=== PATIENT | female | born 1985 | race Caucasian/White ===

== ENCOUNTER 2019-11-20 18:27 | Emergency (ER) | payer OTHER, SELFPAY ==
--- NOTE | ~2019-11-20 | XR_ITS ---
XR knee LT min 4V 11/20/2019 19:51 Indication: Left knee pain after fall. Swelling. Procedure: 5 views left knee Comparison: No prior studies for comparison. Findings: There is a distracted transverse patellar fracture. Large joint effusion. There is prepatel lar and infrapatellar soft tissue swelling. No other fractures. No foreign bodies. Impression: 1: Distracted transverse patellar fracture with large joint effusion. Reviewed, dictated and finalized at location A. Impression: 1: Distracted transverse patellar fracture with large joint effusion.
[2019-11-20 18:35] VITALS: BP 123/60; PULSE 88; RESP 16; TEMP 36.5; O2SAT 100
--- NOTE | 2019-11-20 19:34 | ED.GENADULT ---
HPI - General Adult General Chief complaint: Extremity Injury, Lower Stated complaint: left thigh and knee bruising Time Seen by Provider: 11/20/19 19:34 Source: patient and RN notes reviewed Mode of arrival: ambulatory Limitations: no limitations History of Present Illness HPI narrative: 27-year-old female presents with complains of left proximal-medial thigh bruising and anterior diffused knee swelling, pain, and bruising for the past 4 days. No treatment. Alina says she had a plate of food in her had and slide on some water folding her LT leg under her causing injury to LT knee. She continued to ambulate and use leg for the next 3-4 days until pain increased the last 24 hours with bruising. No radiation of pain. No numbness or tingling, or bleeding. No loss of mobility. Exacerbating factor consist of bearing weight and movement of knee. Denies being , Hysterectomy. Remains active. The patient reports she have not been diagnosed with COVID-19. The patient reports she is not waiting for the results of a COVID-19 lab test. The patient reports she do not have fever, chills, weakness, or fatigue. The patient reports she do not have a new or worsening cough or shortness of breath. Denies chest pain. The patient reports she do not have any rhinorrhea, congestion, sore throat, nausea, vomiting, abdominal pain, and diarrhea. Tolerating po intake well. Denies recent traveling. Denies concerns for COVID-19 or exposures been home with limited outdoor exposure except for essential household needs and return home. At this time, patient is not suspected of having COVID-19. Some parts of this dictation were generated by voice recognition software and may contain typographical and/or grammatical inaccuracies. Related Data Home Medications Medication Instructions Recorded Confirmed gabapentin 400 mg PO TID 11/20/19 11/21/19 naltrexone microspheres [Vivitrol] 380 mg IM MONTHLY 11/20/19 11/21/19 acetaminophen [Tylenol Extra 500 mg PO Q6H PRN 11/21/19 11/21/19 Strength] ibuprofen 200 mg PO Q6H PRN 11/21/19 11/21/19 venlafaxine 150 mg PO DAILY 11/21/19 11/21/19 Allergies Allergy/AdvReac Type Severity Reaction Status Date / Time Sulfa (Sulfonamide Allergy Mild hives Verified 11/21/19 15:34 Antibiotics) sulfamethoxazole Allergy Mild hives Verified 11/21/19 15:34 trimethoprim Allergy Mild hives Verified 11/21/19 15:34 Review of Systems Review of Systems: Narrative: CONSTITUTIONAL: Denies fever, chills, sweats. EYES: Denies visual changes, redness, discharge. ENT: Denies rhinorrhea, congestion, sore throat, otalgia. CARDIOVASCULAR: Denies chest pain, palpitations, edema. RESPIRATORY: Denies dyspnea, wheezing, cough. GASTROINTESTINAL: Denies abdominal pain, nausea, vomiting, diarrhea. GENITOURINARY: Denies dysuria, hematuria, abnormal discharge. SKIN: Denies rash or itching. MUSCULOSKELETAL: Denies acute back pain or myalgia. Complains of Left proximal-medial thigh bruising and anterior diffused knee swelling, pain, and bruising. NEUROLOGIC: Denies numbness, or focal weakness. PSYCHIATRIC: Denies anxiety or depression. All other systems reviewed & are unremarkable except as noted in HPI and below. [facility], [facility] Social History Social History Smoking packs per day: 0.5 Smoking cigarettes per day: 10.0 Years smoked: 15 Smoking pack-years: 7.50 Smoking status: Current every day smoker Tobacco type: cigarettes Second hand tobacco smoke exposure: No Alcohol intake: current Drinks per week: 2 Substance use: current Substance use type: marijuana Other substance usage details: FORMER OPIATE ABUSE- 2 YEARS AGO Last use: 11/21/2019 Gender identity (if verbalized by the patient): Female Spiritual care concerns: No Comments At time of signature, agree with nurse past medical, surgical, social, and family history. There is no relevant family history p
== END 2019-11-20 20:18 | disposition home or self-care (01) ==
PROVIDERS: Emergency Provider Nurse Practitioner Family
DX: S82.002A Unspecified fracture of left patella, initial encounter for closed fracture (principal); X58.XXXA Exposure to other specified factors, initial encounter; M25.462 Effusion, left knee; F17.210 Nicotine dependence, cigarettes, uncomplicated; F32.9 Major depressive disorder, single episode, unspecified
CPT/HCPCS: 73564; 99204; G0463; L1830

== ENCOUNTER 2019-11-26 01:04 | Outpatient (CLI) | payer OTHER, SELFPAY ==
[2019-11-26 19:35] LABS: SARS-CoV-2 RNA PCR Negative
== END 2019-11-26 01:05 | disposition home or self-care (01) ==
LOC: ANHCOVIDDT 01:04
PROVIDERS: Visit Provider Orthopaedic Surgery
DX: Z01.812 Encounter for preprocedural laboratory examination (principal); Z11.59 Encounter for screening for other viral diseases
CPT/HCPCS: 87635; C9803; U0003

== ENCOUNTER 2019-11-28 02:04 | Day surgery (SDC) | payer OTHER, SELFPAY ==
[2019-11-21 15:33] VITALS: BMI 26.6
--- NOTE | 2019-11-27 09:19 | WPDANESEPPF ---
Anes - Initial Pre Proc Eval Procedure: Operation Date: 11/28/19 11:00 Proposed Procedures p Open Reduction Internal Fixation Left Patella - Yogesh Perez MD Date/Time: 11/27/19 09:19 Surgeon: Yogesh Perez MD Pre Op Diagnosis: Left Patella Fx Patient Data Age: 34 Gender: F Height: 1.65 m Weight: 72.57 kg Allergies Allergy/AdvReac Type Severity Reaction Status Date / Time Sulfa (Sulfonamide Allergy Mild hives Verified 11/28/19 09:34 Antibiotics) sulfamethoxazole Allergy Mild hives Verified 11/28/19 09:34 trimethoprim Allergy Mild hives Verified 11/28/19 09:34 Home Medications Medication Instructions Recorded Confirmed Type gabapentin 400 mg PO TID 11/20/19 11/28/19 History naltrexone microspheres [Vivitrol] 380 mg IM MONTHLY 11/20/19 11/28/19 History acetaminophen [Tylenol Extra 500 mg PO Q6H PRN 11/21/19 11/28/19 History Strength] ibuprofen 200 mg PO Q6H PRN 11/21/19 11/28/19 History venlafaxine 150 mg PO DAILY 11/21/19 11/28/19 History Patient hx anesthesia problems: none Family hx anesthesia problems: none [facility] Past Medical History Medical History Anxiety Depression History of substance abuse now on naltrexone Smoker Surgical History Surgical History (Updated 11/21/19 @ 15:00 by Yogesh Perez MD) History of hysterectomy Social History Social History Smoking packs per day: 0.5 Smoking cigarettes per day: 10.0 Years smoked: 15 Smoking pack-years: 7.50 Smoking status: Current every day smoker Tobacco type: cigarettes Second hand tobacco smoke exposure: No Alcohol intake: current Drinks per week: 2 Substance use: current Substance use type: marijuana Other substance usage details: FORMER OPIATE ABUSE- 2 YEARS AGO Last use: 11/21/2019 Gender identity (if verbalized by the patient): Female Spiritual care concerns: No Anes - Eval Final PreProcedure Day of Procedure 11/27/19 09:19 Patient weight: overweight Heart: regular rate and rhythm Lungs: clear to auscultation and normal air movement Airway: Mallampati scale class II Neurological: alert and oriented Last oral intake: >/= 8 hours ASA classification: III Emergent: no Anesthetic plan: proceed Anesthesia type and monitoring: general LMA and standard monitoring Informed Consent: The patient's anesthetic plan and its attendant risks and benefits were discussed with the patient/family/POA. Questions were solicited and answers provided to the satisfaction of the patient/family/POA.
--- NOTE | 2019-11-27 09:19 | WPDANESPNB ---
Anes - Peripheral Nerve Block Date/Time: 11/27/19 09:19 I have discussed with the patient/family/POA the placement of a peripheral nerve block for post-operative pain management, including associated risks, benefits, complications, and side effects. Alternative methods of post-operative analgesia were detailed. Questions were solicited and answers provided to the satisfaction of the patient/family/POA. Time-Out: A pre-procedural Time-Out was completed immediately before starting the procedure and confirmed: Patient Identification, Site, Procedure, Patient Position and the Availability of Requisite Equipment. Clinical Indications: Acute post-operative pain management requested by the operative surgeon. Nerve Block Insertion Note Anes-nerve block: adductor canal left Patient position: supine Skin prep: chlorhexidine Needle: 22 gauge, stimulating, insulated echogenic needle. Needle length: 80 mm Technique: ultrasound Injectate: bupivacaine 0.5% with epi 5 mcg/ml (30cc) Observations: tolerated well Complications: none Procedure start time:: 1130 Procedure end time:: 1132
[2019-11-28] VITALS (13 sets, daily range): BP systolic 117–141; BP diastolic 62–100; PULSE 60–98; RESP 16–24; TEMP 36.9–37.7; O2SAT 97–100
--- NOTE | ~2019-11-28 | XR_ITS ---
EXAMINATION: XR surgery orthopedic DATE: 11/28/2019 14:11 INDICATION: ORIF left patellar fracture TECHNIQUE: 4 fluoroscopic spot images of the left knee were obtained during procedure performed by Dr Glida Perez. Radiologist was not present for the imaging or procedure. The amount of fluoroscopy judi e used during this procedure was 0.9 minutes. COMPARISON: None. FINDINGS: Images demonstrate a transverse fracture of the patella which is been reduced to essentiall y anatomic alignment and disc fixed with 2 cannulated lag screws which are threaded a duejld-ob-myexr cerclage wire which extends along the anterior margin of the patella. No other fractures identified. Joint spacing the medial and lateral compartments appear unremarkable. IMPRESSION: 1. Fluoroscopy utilized during internal fixation of a transverse patellar fracture which is now near- anatomic alignment. See procedure note for further detail. Reviewed, dictated and finalized at location A. IMPRESSION: 1. Fluoroscopy utilized during internal fixation of a transverse patellar fract ure which is now near-anatomic alignment. See procedure note for further detail .
[2019-11-28] MEDS: ACETAMINOPHEN 500 MG TABLET 1000 MG PO (09:54)
[2019-11-28] MEDS: LACTATED RINGERS 1,000 ML 30 ML IV CONT ×3 (09:54→16:46)
[2019-11-28] MEDS: KETOROLAC 15 MG/ML VIAL (*BKC) IV PUSH ×2 (09:55→15:50)
--- NOTE | 2019-11-28 10:10 | SUR.PREOP ---
PT INFORMED OF SURGICAL TIME DELAY UPON ARRIVAL
--- NOTE | 2019-11-28 10:52 | WPDHPUPDATE1 ---
History and Physical Update Update Date/Time: 11/28/19 10:52 History and Physical has been reviewed, including an updated exam of the patient. There are NO changes in the patient's condition. Risks, benefits, and alternatives have been discussed and questions answered. Patient agrees to proceed with procedure.
[2019-11-28] MEDS: ceFAZolin 2 GM/D5W 50 ML 2 GM/50 ML BAG IVPB (11:56)
[2019-11-28] MEDS: BUPIVACAINE/EPINEPHRINE 0.5% 30 ML VIAL INFILTRATE (14:08)
--- NOTE | 2019-11-28 15:06 | SUR.PHASEI ---
1451; PT INTO PACU PER STRETCHER. PT TRYING TO SIT UP ON STRETCHER. PT DROWSY, DISORIENTED. STAFF KEEPING PT ON STRETCHER. ORIENTING TO PACU. 1458; PT REMAINS DROWSY, TRYING TO SIT UP AND GET OFF STRETCHER. PT COMFORTED. FUR PLUCKER GAVE IV VERSED. 1503; PT RESTING QUIETLY. RESP EVEN UNLABORED. P,W,D. LT LEG DRESSING D/I. BRACE INTACT. ELEVATED AND ICED. LT FOOT PINK AND WARM. 1505; PT SHIVERING. MARIELENA HUGGER APPLIED.
--- NOTE | 2019-11-28 15:31 | SUR.PHASEII ---
PT AWAKE. C/O PAIN 08/31. NO NARCOTICS . LT LEG ELEVATED ON PILLOW, ICE PACK ON. BRACE STRAIGHT AND INTACT.
[2019-11-28] MEDS: ONDANSETRON INJ 4 MG/2 ML VIAL IV PUSH (15:36)
--- NOTE | 2019-11-28 15:37 | SUR.PHASEI ---
0525; PT C/O NAUSEA. TEARFUL NOW. STATES SHE WOULD LIKE SOME IV NARCOTIC FOR PAIN NOW. JUST NONE TO GO HOME WITH . ZOFRAN GIVEN IV. PT COMFORTED.
--- NOTE | 2019-11-28 15:38 | SUR.PHASEI ---
LATE NOTE 1529; MOTHER CALLED FOR UPDATE. SHE STATED DO NOT GIVE HER ANY NARCOTICS . MOTHER WAS VERY ADAMANT ABOUT THIS.
--- NOTE | 2019-11-28 15:44 | SUR.PHASEI ---
154; CALLED DR SALDANA. NOTIFIED OF PT ASKING FOR IV PAIN MEDICINE BUT NO PAIN PILLS. DR SALDANA STATES HE AND PT DID DISCUSS USING IV NARCOTICS AND THAT SHE WAS OK WITH IT PREOP. WILL START WITH ANOTHER IV TORADOL 15MG.
--- NOTE | 2019-11-28 15:54 | SUR.PHASEI ---
9897; CALLED DR PEARSON'S OFFICE. WILL CALL BACK.
--- NOTE | 2019-11-28 16:30 | SUR.PHASEI ---
1604; SPOKE TO DR PEARSON. HE STATES PT WILL BE IN A SIGNIFICANT AMT OF PAIN DUE TO THIS SURGERY. PT WILL NEED IV PAIN MEDICINE. ALSO THAT HE SPOKE TO PT'S MARIVEL QUZEADA, AND SAID HE WAS SENDING A PRESCRIPTION FOR 2-3 DAYS WORTH OF PAIN MEDICATION. 1610; PT UPDATED. PT AWAKE AND ALERT. ASKING FOR PAIN MEDICATION. 1630; PT AWAKE AND ALERT TALKATIVE. STATES PAIN BETTER NOW AT 5-6/10. SHE IS CALM AND NO LONGER TEARFUL.
--- NOTE | 2019-11-28 16:38 | SUR.PHASEI ---
1640; PT RESTING QUIETLY. RESP EVEN UNLABORED.
--- NOTE | 2019-11-28 16:54 | SUR.PHASEI ---
1645; PT AWAKE AND ALERT. STATES PAIN 6/10. WOULD LIKE ONE MORE DOSE OF PAIN MEDICATION. 1654; PT STATES SHE IS READY TO MOVE TO [facility].
--- NOTE | 2019-12-13 09:31 | PM.PROC ---
Procedure Note - Detailed Date of procedure: 11/28/19 Pre-op diagnosis: Left Patella Fx Post-op diagnosis: same Procedure performed: Open reduction and internal fixation left patella fracture. Description of procedure: Comminuted fracture with wide displacement. Fixed with 4-0 cannulated screws and 20 gauge wire. Anesthesia: GLMA Surgeon: Yogesh Perez MD Complications: No immediate complications Condition: stable Disposition: PACU Findings: Preoperative antibiotics were given. A general anesthetic was administered. The leg was prepped and draped in the usual sterile fashion. A longitudinal incision was created over the patella. The fracture was cleaned and exposed. Significant comminution noted laterally. A medial parapatellar arthrotomy was performed to gain access to the articular fragments. Anatomic reduction was obtained. Reduction clamps were used. Partially threaded cannulated screws were placed from distal to proximal. Good compression of the fracture was observed. A 20 gauge wire was woven in a bkrdoj-fh-vqbwx fashion. The wire was twisted and compressed anteriorly. The knee was copiously irrigated. The remaining articular cartilage it initially looked good. The medial and lateral retinacular splits were closed with 1. Vicryl suture. The deep fascia was closed similarly as well with 2. Quill suture. Subcutaneous interrupted sutures were placed followed by running subcuticular Quill suture and Steri-Strips. A sterile dressing was applied. The patient was extubated and brought to recovery room in stable condition. A knee immobilizer was applied.
== END 2019-11-28 17:55 | disposition home or self-care (01) ==
PROVIDERS: Visit Provider Orthopaedic Surgery
PROC: (CPT 27524; principal; 2019-11-28 11:00)
DX: S82.032A Displaced transverse fracture of left patella, initial encounter for closed fracture (principal); W01.0XXA Fall on same level from slipping, tripping and stumbling without subsequent striking against object, initial encounter; G89.18 Other acute postprocedural pain; F41.8 Other specified anxiety disorders; F17.210 Nicotine dependence, cigarettes, uncomplicated; F11.11 Opioid abuse, in remission; F12.90 Cannabis use, unspecified, uncomplicated
CPT/HCPCS: 27524; 64447; A9270; C1713; C1769; J0690; J1100; J1885; J2250; J2370; J2405; J2704; J3010; J7120; L1830

== ENCOUNTER 2021-09-05 15:21 | Emergency (ER) | payer OTHER, SELFPAY ==
[2021-09-05 15:25] VITALS: BP 145/91; PULSE 130; RESP 18; TEMP 37.1; O2SAT 99
--- NOTE | 2021-09-05 15:33 | ED.CHESTPAIN ---
HPI - Chest Pain General Chief Complaint: Chest Pain Stated Complaint: Chest Pain Time Seen by Provider: 09/05/21 15:23 Source: patient and RN notes reviewed History of Present Illness HPI narrative: Patient is a 36-year-old female who presents the urgent care with complaints of left-sided chest pain. Patient states that it started approximately 1 week ago and is now radiating through the back, around the left shoulder and down the left arm. Patient states that she mowed the lawn today assuming that it was muscular pain . Patient states that the pain did exacerbate with mowing as well as with pressure to the chest. Patient states she has a lot of anxiety and depression in her past. States that she is currently nauseated but denies vomiting. Denies of palpitations. Denies of shortness of breath. Patient has not taken anything [id number] for her symptoms. 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 Patient is trending off the medication with her primary care doctor. No other acute complaints. Patient is anxious and tearful. Patient aware of the plan of care. Some parts of this dictation were generated by voice recognition software and may contain typographical and/or grammatical inaccuracies. Related Data Home Medications Medication Instructions Recorded Confirmed venlafaxine 150 mg PO DAILY 11/21/19 09/05/21 buspirone 5 mg PO TID 09/05/21 09/05/21 disulfiram 250 mg PO DAILY 09/05/21 09/05/21 gabapentin 600 mg PO TID 09/05/21 09/05/21 venlafaxine 75 mg PO QPM 09/05/21 09/05/21 Allergies Allergy/AdvReac Type Severity Reaction Status Date / Time Sulfa (Sulfonamide Allergy Mild hives Verified 09/05/21 15:53 Antibiotics) sulfamethoxazole Allergy Mild hives Verified 09/05/21 15:53 trimethoprim Allergy Mild hives Verified 09/05/21 15:53 Review of Systems Review of Systems: CONSTITUTIONAL: Denies fever, chills, or sweats. EYES: Denies visual changes, redness, or discharge. ENT: Denies rhinorrhea, congestion, sore throat, or otalgia. CARDIOVASCULAR: Reports of chest pain to the left chest radiating through to the back and down the left arm RESPIRATORY: Denies cough or dyspnea. GASTROINTESTINAL: Denies abdominal pain, nausea, vomiting, or diarrhea. GENITOURINARY: Denies dysuria or hematuria. SKIN: Denies rash or itching. MUSCULOSKELETAL: Denies back pain, joint pain, or myalgia. NEUROLOGIC: Denies headache, numbness, or weakness. PSYCHIATRIC: Reports of anxiety and panic attacks All other systems reviewed are negative, except as documented in HPI. PMFSH Past Medical History Medical History Anxiety Depression History of substance abuse now on naltrexone Smoker Surgical History Surgical History History of hysterectomy Family History Family History Father Alive and well Mother Alive and well Social History Social History Smoking packs per day: 0.5 Smoking cigarettes per day: 10.0 Years smoked: 15 Smoking pack-years: 7.50 Smoking status: Current every day smoker Tobacco type: cigarettes Second hand tobacco smoke exposure: No Alcohol intake: current Drinks per week: 2 Substance use: current Substance use type: marijuana Other substance usage details: FORMER OPIATE ABUSE- 2 YEARS AGO Last use: 11/21/2019 Gender identity (if verbalized by the patient): Female Sexual Orientation (if Verbalized by the Patient): Straight or Heterosexual Spiritual care concerns: No Comments At the time of my signature, I reviewed and agree with the nursing past medical, surgical, social, and family history. There is no relevant family history pertinent to the patient complaint. Exam Narrative: GENERAL: This is a well-nourished, well-developed patient. Tearful and anxious HEAD: no
[2021-09-05 15:53] VITALS: BP 130/91
== END 2021-09-05 15:53 | disposition short-term general hospital (02) ==
PROVIDERS: Emergency Provider Nurse Practitioner Family
DX: R07.9 Chest pain, unspecified (principal); F17.210 Nicotine dependence, cigarettes, uncomplicated; F41.9 Anxiety disorder, unspecified; F32.A Depression, unspecified
CPT/HCPCS: 93005; 99212; G0463

== ENCOUNTER 2021-10-27 13:53 | Emergency (ER) | payer OTHER, SELFPAY ==
--- NOTE | ~2021-10-27 | XR_ITS ---
EXAM: XR ankle LT min 3V DATE: 10/27/2021 14:14 HISTORY: LATERAL MALLEOLUS SWELLING, NKI,HX SURGERY X 6 YEARS . COMPARISON: None available. FINDINGS: Decreased mineralization. Fixation hardware in the talus. Moderate degenerative change in the tibiotalar joint, with less severe changes in multiple additional hindfoot joints. Ovoid ossific body distal to the lateral malleolus, may represent a loose joint body, congenital os, or old avulsio n fracture fragment or other fracture fragment without clear donor site. IMPRESSION: No acute osseous finding in the left ankle. Reviewed, dictated and finalized at location K.
--- NOTE | 2021-10-27 13:56 | ED.LOWEXIN ---
HPI - Extremity Injury (Lower) General Chief Complaint: Extremity Injury, Lower Stated Complaint: Left Foot pain Time Seen by Provider: 10/27/21 13:56 Source: patient and RN notes reviewed History of Present Illness HPI Narrative: Patient is a 36-year-old female who presents the urgent care with complaints of left foot and ankle pain for the last 2 days. Patient has not broken the ankle and has it surgically repaired after jumping out of the window. Patient denies of any recent trauma or injury. States that she has been exercising a little bit more than normal and taking walks. Patient denies of any dves-nay-swpsosx treatment for her pain. No other acute complaints. No acute distress noted. Patient aware of the plan of care. Some parts of this dictation were generated by voice recognition software and may contain typographical and/or grammatical inaccuracies. Related Data Home Medications Medication Instructions Recorded Confirmed venlafaxine 150 mg 150 mg PO DAILY 11/21/19 09/05/21 capsule,extended release 24 hr disulfiram 250 mg tablet 250 mg PO DAILY 09/05/21 09/05/21 gabapentin 600 mg tablet 600 mg PO TID 09/05/21 09/05/21 olanzapine 2.5 mg tablet (Zyprexa) 2.5 mg PO DAILY 10/27/21 10/27/21 Allergies Allergy/AdvReac Type Severity Reaction Status Date / Time Sulfa (Sulfonamide Allergy Mild hives Verified 10/27/21 14:12 Antibiotics) sulfamethoxazole Allergy Mild hives Verified 10/27/21 14:12 trimethoprim Allergy Mild hives Verified 10/27/21 14:12 Review of Systems Review of Systems: CONSTITUTIONAL: Denies fever, chills, or sweats. EYES: Denies visual changes, redness, or discharge. ENT: Denies rhinorrhea, congestion, sore throat, or otalgia. CARDIOVASCULAR: Denies chest pain, palpitations, or edema. RESPIRATORY: Denies cough or dyspnea. GASTROINTESTINAL: Denies abdominal pain, nausea, vomiting, or diarrhea. GENITOURINARY: Denies dysuria or hematuria. SKIN: Denies rash or itching. MUSCULOSKELETAL: Reports of left foot and ankle pain NEUROLOGIC: Denies headache, numbness, or weakness. All other systems reviewed are negative, except as documented in HPI. [facility] Past Medical History Medical History Anxiety Depression History of substance abuse now on naltrexone Smoker Surgical History Surgical History History of hysterectomy Family History Family History Father Alive and well Mother Alive and well Social History Social History Smoking packs per day: 0.5 Smoking cigarettes per day: 10.0 Years smoked: 15 Smoking pack-years: 7.50 Smoking status: Current every day smoker Tobacco type: cigarettes Second hand tobacco smoke exposure: No Alcohol intake: current Drinks per week: 2 Substance use: current Substance use type: marijuana Other substance usage details: FORMER OPIATE ABUSE- 2 YEARS AGO Last use: 11/21/2019 Gender identity (if verbalized by the patient): Female Sexual Orientation (if Verbalized by the Patient): Straight or Heterosexual Spiritual care concerns: No Comments At the time of my signature, I reviewed and agree with the nursing past medical, surgical, social, and family history. There is no relevant family history pertinent to the patient complaint. I mean Exam Narrative: GENERAL: This is a well-nourished, well-developed patient, in no apparent distress. HEAD: normocephalic, atraumatic. EYES: PERRL. Sclera clear/white. Vision is grossly intact. EARS: External ears normal NOSE: External nose normal with no obvious nasal discharge, nares without redness, no rhinorrhea. THROAT: Mucous membranes moist NECK: Neck supple CARDIOVASCULAR: Regular rate and rhythm without murmurs, gallops, or rubs. RESPIRATORY: Clear to auscultation. Breath sounds equal bilaterally. No wheezes, r
[2021-10-27 14:01] VITALS: BP 101/59; PULSE 107; RESP 14; TEMP 36.9; O2SAT 97
[2021-10-27 14:13] VITALS: BP 101/59; PULSE 107; RESP 14; TEMP 36.9; O2SAT 97
--- NOTE | 2021-10-27 14:15 | PC.NURSE ---
PT DECLINED ICE FOR COMFORT AND WHEELCHAIR TO RADIOLOGY
== END 2021-10-27 14:32 | disposition home or self-care (01) ==
PROVIDERS: Emergency Provider Nurse Practitioner Family
DX: S93.402A Sprain of unspecified ligament of left ankle, initial encounter (principal); S96.912A Strain of unspecified muscle and tendon at ankle and foot level, left foot, initial encounter; F17.210 Nicotine dependence, cigarettes, uncomplicated; X58.XXXA Exposure to other specified factors, initial encounter
CPT/HCPCS: 73610; 99213; G0463

== ENCOUNTER 2023-12-24 08:57 | Emergency (ER) | payer OTHER, SELFPAY ==
--- NOTE | ~2023-12-24 | XR_ITS ---
Clinical Indication: Cough PA and lateral views of the chest: Comparison: None Findings: The lungs are clear, without evidence of focal consolidation or pleural effusion. Cardiome diastinal silhouette is within normal limits. Bones and soft tissues are unremarkable. Impression: Normal chest. Reviewed, dictated and finalized at location . Impression: Normal chest.
[2023-12-24 09:03] VITALS: BP 119/77; PULSE 88; RESP 18; TEMP 36.9; O2SAT 99
--- NOTE | 2023-12-24 09:27 | ECG_ITS ---
Test Date: 2023-12-24 09:32:32 Measurements Intervals [place] Rate: 77 P: 76 FL: 118 QRS: 50 QRSD: 82 T: 53 QT: 373 QTc: 424 Interpretive Statements SINUS RHYTHM WITH SHORT FL INTERVAL BASELINE ARTIFACT- I, II, III, AVR, AVL, AVF, V2 BORDERLINE ECG No previous ECG available for comparison Electronically Signed On 12-24-2023 11:17:57 CDT by Smith Thompson D.O.
--- NOTE | 2023-12-24 09:32 | ED.GENADULT ---
HPI - General Adult General Chief complaint: Upper Respiratory Infection Stated complaint: Congestion/Cough Source: patient Mode of arrival: ambulatory Limitations: no limitations History of Present Illness HPI narrative: Patient presents for evaluation of sick symptoms for last 5 days. Symptoms include sinus congestion, rhinorrhea, and productive cough of clear sputum. No fever, chills, nausea, vomiting, diarrhea. She has experienced some chest pressure and has mild SOB. Last night she was smoking marijuana and had a syncopal episode. She states she had a positive LOC that lasted about thirty seconds. Her boyfriend was able to support her so that she did not fall to the ground. No recent sick contacts. She smokes about 1/2 ppd. Related Data Home Medications Medication Instructions Recorded Confirmed venlafaxine 150 mg 150 mg PO DAILY 11/21/19 12/24/23 capsule,extended release 24 hr disulfiram 250 mg tablet 250 mg PO DAILY 09/05/21 12/24/23 olanzapine 2.5 mg tablet (Zyprexa) 5 mg PO DAILY 10/27/21 12/24/23 atomoxetine 80 mg capsule 80 mg PO [id number] 12/24/23 12/24/23 (Strattera) gabapentin 800 mg tablet 80 mg PO TID 12/24/23 12/24/23 hydroxyzine HCl 25 mg tablet 25 mg PO BID 12/24/23 12/24/23 trazodone 100 mg tablet 100 mg PO QHS 12/24/23 12/24/23 Allergies Allergy/AdvReac Type Severity Reaction Status Date / Time Sulfa (Sulfonamide Allergy Mild hives Verified 12/24/23 09:36 Antibiotics) sulfamethoxazole Allergy Mild hives Verified 12/24/23 09:36 trimethoprim Allergy Mild hives Verified 12/24/23 09:36 Review of Systems Review of Systems: CONSTITUTIONAL: Denies fever, chills, or sweats. EYES: Denies visual changes, redness, or discharge. ENT: Reports sinus congestion and rhinorrhea. Denies sore throat CARDIOVASCULAR: Reports mild chest pressure. Denies palpitations, or edema. RESPIRATORY: Reports cough and mild SOB GASTROINTESTINAL: Denies abdominal pain, nausea, vomiting, or diarrhea. GENITOURINARY: Denies dysuria or hematuria. SKIN: Denies rash or itching. MUSCULOSKELETAL: Denies back pain, joint pain, or myalgia. NEUROLOGIC: Reports lightheadedness. Denies headache, numbness, dizziness, or weakness. PSYCHIATRIC: Denies anxiety or depression. [facility] Past Medical History Medical History Anxiety Depression History of substance abuse now on naltrexone Smoker Surgical History Surgical History History of hysterectomy Family History Family History Father Alive and well Mother Alive and well Social History Social History Smoking packs per day: 0.5 Smoking cigarettes per day: 10.0 Years smoked: 15 Smoking pack-years: 7.50 Smoking status: Current every day smoker Tobacco type: cigarettes Second hand tobacco smoke exposure: No Alcohol intake: current Drinks per week: 2 Substance use: current Substance use type: marijuana Other substance usage details: FORMER OPIATE ABUSE- 2 YEARS AGO Last use: 11/21/2019 Living arrangements: with family Occupation/Education: unemployed Gender identity (if verbalized by the patient): Female Sexual Orientation (if Verbalized by the Patient): Straight or Heterosexual Spiritual care concerns: No Exam Narrative: GENERAL: Well-appearing, well-nourished, and in no acute distress. HEAD: Normocephalic, atraumatic. EYES: PERRLA and EOMI. ENT: Nares clear, no rhinorrhea or epistaxis. Mucous membranes moist. Oropharynx without tonsillar hypertrophy exudate or other lesions. Bilateral TMs pearly locke nonbulging NECK: Supple. No adenopathy or masses. No carotid bruits or JVD CHEST: Wheezing and rales noted in all lung grier. Cough present on exam HEART: Regular rate and rhythm. No murmur heard. Normal peripheral pulses. ABDOMEN: Soft,
[2023-12-24 09:34] LABS: Glucose Point of Care 101 mg/dl (65-105)
[2023-12-24 09:37] LABS: EDINFLUASCREEN Negative; EDINFLUBSCREEN Negative
== END 2023-12-24 10:05 | disposition home or self-care (01) ==
PROVIDERS: Emergency Provider Nurse Practitioner; PCP Hospitalist
DX: J06.9 Acute upper respiratory infection, unspecified (principal); Z20.822 Contact with and (suspected) exposure to COVID-19; F17.210 Nicotine dependence, cigarettes, uncomplicated; F12.90 Cannabis use, unspecified, uncomplicated; F41.9 Anxiety disorder, unspecified; F32.A Depression, unspecified
CPT/HCPCS: 71046; 82948; 87426; 87804; 93005; 99213; G0463

== ENCOUNTER 2025-04-12 10:35 | Emergency (ER) | payer BC, SELFPAY ==
[2025-04-12 10:38] VITALS: BP 121/77; PULSE 80; RESP 16; TEMP 36.4; O2SAT 100
--- OUTSIDE RECORDS SUMMARY | 2025-04-12 10:38 | XMS_ITS | Clinical Summary ---
Author Organization [facility] Address [address] [place] [address] Care Team Providers Care Equipment Services Associate Name Role Phone Peyman Gonzalez MD Primary Care Provider [phone] Nany Bustamante Unavailable Unavailable Allergies Active Allergy Reactions Criticality Noted Date Comments Sulfamethoxazole Sulfamethoxazole-Trimethop rim Other (See comments) Reaction: Rash, , Trimethoprim Medications gabapentin (NEURONTIN) 800 mg tablet Take 1 tablet (800 mg total) by mouth 4 (four) times a day 360 tablet 3 03/07/20 25 026 Active venlafaxine XR (EFFEXOR-XR) 150 mg 24 hr capsule TAKE 1 CAPSULE BY MOUTH EVERY DAY 90 capsule 1 03/14/20 25 Active disulfiram (ANTABUSE) 250 mg tablet TAKE 1 TABLET BY MOUTH EVERY DAY 90 tablet 1 03/14/20 25 Active diazePAM (VALIUM) 10 mg tablet Take 1 tablet (10 mg total) by mouth nightly AND 0.5 tablets (5 mg total) furniture associate before breakfast. 45 tablet 03/26/20 25 026 Active disulfiram (ANTABUSE) 250 mg tablet Take 1 tablet (250 mg total) by mouth daily 30 tablet 5 09/13/19 25 025 Discontinued venlafaxine XR (EFFEXOR-XR) 150 mg 24 hr capsule TAKE 1 CAPSULE BY MOUTH EVERY DAY 90 capsule 1 09/25/19 25 025 Discontinued diazePAM (VALIUM) 10 mg tablet Take 1 tablet (10 mg total) by mouth nightly as needed for anxiety 30 tablet 11/14 025 Discontinued(Re order) Active Problems Problem Noted Date Diagnosed Date Moderate tobacco use disorder 03/27/2024 Assessment & Plan (03/27/2024 9:37 AM LAY HEALTH ADVOCATE): Patient would like to quit tobacco use, does not want to use Chantix due to concerns regarding vivid dreams Has compulsive use Encouraged continued work towards cessation Class 1 drug-induced obesity without serious comorbidity with body mass index (BMI) of 31.0 to 31.9 in adult 03/27/2024 Assessment & Plan (06/20/2024 4:51 PM LAY HEALTH ADVOCATE): Stable, not well controlled, patient continues to have some weight gain, difficulty with losing weight even with dietary and activity changes Encouraged regular physical activity Will give trial of phentermine 15 mg daily to help with appetite suppression and managing energy levels Assessment & Plan (03/27/2024 9:39 AM LAY HEALTH ADVOCATE): Patient reports weight gain associated with use of antipsychotics including Zyprexa; however need Zyprexa order to better maintain anxiety disorder Patient may benefit from zepbound to help with weight maintenance Axillary pain, right 05/04/2023 Attention deficit disorder of adult with hyperac tivity 11/08/2022 Assessment & Plan (03/27/2024 9:37 AM LAY HEALTH ADVOCATE): Stable, well controlled with management of anxiety, patient reports no significant relief with Strattera Continue management of anxiety and depression Assessment & Plan (09/13/2023 2:13 PM CDT): Not well controlled; continues to have difficulty with remembering things; some difficulty with focus and concentration for school work Continue Strattera 40 mg daily, guanfacine 1 mg daily; will adjust based upon response to therapy Assessment & Plan (06/30/2023 4:05 PM LAY HEALTH ADVOCATE): Not well controlled, patient continues to have difficulty with reading, focusing and retention of material; will discontinue Strattera; start guanfacine 1 mg daily Recommend patient engage with ADHD behavioral therapy to help improve behaviors around stenting Assessment & Plan (04/28/2023 11:30 AM LAY HEALTH ADVOCATE): Not well controlled, poor response to Strattera; patient reports my continues to raise, difficulty with focus and concentration Patient had excessive heart rate associated with Concerta Will give trial of Adderall 10 mg Encouraged patient to engage with CBT for ADHD Assessment & Plan (02/24/2023 12:39 PM CDT): Somewhat well controlled; has improvement with Strattera; but continues to have difficulty expressing what she is learning and non intrusive thoughts Continue Strattera 80 mg daily, start methylphenidate 18 mg daily Assessment & Plan (12/14/2022 2:14 PM CDT): Stable improving; patient reports she has some difficulty with concentrating on school work, however she also admits she is not been having any regimented routines or studying for the past several months Continue Strattera 80 mg daily; encouraged patient continue to work on strategies coping mechanisms to improve focus and concentration Assessment & Plan (11/08/2022 4:37 PM CDT): Well controlled, patient reports improvement in symptoms, anxiety is improving with current medications Continue Strattera 80 mg daily Gabapentin Misuse 08/20/2021 Assessment & Plan (12/14/2022 2:13 PM CDT): Stable, well controlled; patient reports she is taking gabapentin as prescribed; reports that her parents are managing medications to reduce risk of overuse At this time will keep patient steady at gabapentin 300 mg q.i.d. Assessment & Plan (11/08/2022 4:37 PM CDT): Stable, patient is well controlled at current dose, continue gabapentin 300 mg q.i.d.; as patient remains stable, will continue to work with patient to work towards tapering Assessment & Plan (10/04/2022 1:11 PM CDT): Stable, maintaining current dose Continue gabapentin 300 mg q.i.d. Assessment & Plan (06/20/2022 4:57 PM LAY HEALTH ADVOCATE): Stable, no current Florencia issues; parents are helping manage dosing of medication Continue 300 mg t.i.d. Assessment & Plan (11/12/2021 9:28 AM CDT): Stable, improving; patient is having parents help monitor gets meds for medications to reduce risk of abuse and overuse Will decrease from q.i.d. to t.i.d. dosing Continue gabapentin 300 mg t.i.d. for 1 month Assessment & Plan (10/18/2021 1:13 PM CDT): Not well controlled; patient reported she was unable to fill prescription last week and had poor control over weekend leading to episode of binge drinking -patient reports taking as prescribed, but ran out early as some of the medications were ruined with water/fell in sink -will continue to taper, down to 300 mg qid -will refer to warm hand off program for further support/evaluation of outpatient treatment options. Assessment & Plan (09/24/2021 2:05 PM CDT): Not well controlled; improving -patient has been working on taper; decreased to 400 mg QID, patient still feels not fully stable on current dose; will contnue for another 30 days and work with patient on next dose adjustment. Assessment & Plan (08/20/2021 4:10 PM CDT): Patient reports misuse in overuse of gabapentin since passing of 4 years ago Patient reports using her own prescription as well as her boyfriend's prescription medicine Patient has been working to decrease usage, currently down to gabapentin 800 mg t.i.d.; will continue to taper Today will prescribe gabapentin 600 mg t.i.d., continue for 1 month and then taper at follow-up appointment Moderate episode of recurrent major depressive d isorder 05/28/2021 Assessment & Plan (03/23/2025 9:24 PM LAY HEALTH ADVOCATE): Stable, well controlled; patient reports no current depressive symptoms Continue venlafaxine 150 mg daily Assessment & Plan (06/20/2024 4:50 PM LAY HEALTH ADVOCATE): Stable, generally well controlled; patient reports some reduction emotions, especially crying, but overall feels well Patient has some concerns about side effects related to Zyprexa, including weight gain and possible sexual dysfunction At this time continue venlafaxine 150 mg daily, Zyprexa 2.5 mg nightly; will evaluate if patient would benefit from other medications such as cariprazine. Assessment & Plan (03/27/2024 9:37 AM LAY HEALTH ADVOCATE): Stable, well controlled, no major depressive symptoms today Continue Effexor 150 mg daily, trazodone 100 mg nightly Assessment & Plan (09/13/2023 2:12 PM CDT): Patient reports generally feeling sad all the time, also has decreased overall sense of emotions Will continue to monitor, encourage regular engagement with counseling Continue venlafaxine 150 mg daily Assessment & Plan (06/30/2023 4:05 PM LAY HEALTH ADVOCATE): Not well controlled, continues to have depression and anxiety; patient reports feeling numbed to world with decreased motion Recently discontinued Zyprexa due to weight gain and side effects Continue venlafaxine 150 mg daily, will taper down Strattera Assessment & Plan (11/08/2022 4:37 PM CDT): Stable, generally well controlled, patient is doing well with current medications, those had weight gain associated with Zyprexa Continue Zyprexa 5 mg nightly, sertraline 25 mg daily, trazodone 100 mg nightly, venlafaxine 150 mg daily Start metformin 500 mg daily for weight gain associated with antipsychotics Assessment & Plan (10/04/2022 1:12 PM CDT): Stable, improving; feels more calm better blood focus, now having difficulty with sleeping Continue hydroxyzine Zyprexa at bedtime Patient reports overall feels improved with medication Continue Strattera 80 mg daily Continues to have some sadness Continue venlafaxine 150 mg daily Taper off sertraline; 25 mg x 7 days Assessment & Plan (06/20/2022 4:56 PM LAY HEALTH ADVOCATE): Continues to have significant mood swings, generally pessimistic, concerned about anxiety and depression triggering use substances Feels hopeless, dealing with 2 children Continue sertraline 50 mg daily, venlafaxine 150 mg daily, Zyprexa 5 mg daily Encouraged patient to engage with individual counseling Assessment & Plan (02/08/2022 6:07 PM CDT): Stable, improving; patient has been helping patient to manage medications to reduce risk of overuse of gabapentin Continues to have some mood swings Continue gabapentin 300 mg t.i.d.; Effexor 225 mg daily, Zyprexa 2.5 mg daily Assessment & Plan (11/12/2021 9:27 AM CDT): , improving; patient reports that her mood is generally well controlled, now engaging with outpatient counseling Continue venlafaxine 225 mg daily Assessment & Plan (10/18/2021 1:48 PM CDT): Not well controlled; patient reports significant crying recently, feeling disappointed in self -continues to engage with counseling -will continue Effexor 225 mg daily; Zyprexa 2.5 mg nightly -if no imrpvoement will consider referral to psychiatry Assessment & Plan (08/20/2021 4:12 PM CDT): Stable, semi well controlled; patient reports only mild amounts of depression, but does report generalized lability of her mood Will continue with Effexor 225 mg daily Continue to evaluate to ensure appropriate diagnosis verses missed diagnosis of bipolar disorder Continue to have difficulty with management mood, would consider adding mood stabilizer and referral to Psychiatry for Assessment & Plan (05/28/2021 4:14 PM LAY HEALTH ADVOCATE): Not well controlled, patient is having difficulty with emotions, has difficulty coping due to previous use of substances as coping skill Increase gabapentin to 800 mg t.i.d., Effexor to 225 mg q.d. Encouraged patient to engage with counseling Chronic pelvic pain in female 03/25/2021 TMJ (dislocation of temporomandibular joint) 05/2020 Alcohol use disorder, moderate, in early remissi on 03/25/2021 Assessment & Plan (03/23/2025 9:24 PM LAY HEALTH ADVOCATE): Stable, well controlled, remains alcohol free; continue Antabuse 250 mg nightly Assessment & Plan (06/20/2024 4:50 PM LAY HEALTH ADVOCATE): Stable, well controlled; patient continues to remain alcohol free; has been sober for over 2 years Continue Antabuse 250 mg daily; gabapentin 800 mg q.i.d. Assessment & Plan (03/27/2024 9:38 AM LAY HEALTH ADVOCATE): Stable, well controlled patient is alcohol free in the past 1.5 L, focusing on being protective bubble, patient recognizes concerns around social situation such as work pretty use, has made worker's aware of her past history of alcohol use disorder to help her avoid alcohol use and reduce pressures to drink Continue disulfiram 250 mg daily, encourage mutual support groups Assessment & Plan (09/13/2023 2:11 PM CDT): Stable, well controlled; patient reports no alcohol use x1 year; encouraged continued cessation from alcohol use Continue Antabuse 250 mg daily Assessment & Plan (06/30/2023 4:04 PM LAY HEALTH ADVOCATE): Stable, well controlled; no use of alcohol; continue Antabuse 250 mg daily Assessment & Plan (04/28/2023 11:29 AM LAY HEALTH ADVOCATE): Well controlled; patient reports she maintain sobriety; no alcohol in over 9 months; patient reports good response to medications, would like to restart meetings in groups Encouraged patient to engage with meetings in order to continue developed community in social engagement Continue disulfiram 250 mg daily Assessment & Plan (02/24/2023 12:33 PM CDT): Well controlled; patient continues to abstain from alcohol use; engages with individual counseling Continue disulfiram 250 mg daily Assessment & Plan (12/14/2022 2:13 PM CDT): Stable, well controlled; patient reports 135 days of sobriety; congratulated patient; no current engagement with mutual support groups, though encouraged patient continue to think about joining mutual support groups Assessment & Plan (11/08/2022 4:37 PM CDT): Continues to follow with individual therapy, sober for 68 days Patient has been 1 meeting in the last month, but plans to re-engage Assessment & Plan (10/04/2022 1:11 PM CDT): Stable, improving; 42 days since last drink Continue Antabuse 250 mg daily Assessment & Plan (08/11/2022 2:22 PM CDT): Stable, patient reports 8 months sober, however had relapse approximately 2 weeks ago; patient reports drinking for 7 days, followed by 9 days of sobriety Patient is reengaging with [employer], daily meetings Engages with DISTRIBUTING CLERK Patient to engage with peer cost recovery technician Continue Antabuse 250 mg daily Assessment & Plan (06/20/2022 4:56 PM LAY HEALTH ADVOCATE): Stable, well controlled; not use any current alcohol Continue Antabuse 250 mg daily Assessment & Plan (02/08/2022 6:07 PM CDT): Stable, well controlled; continue Antabuse 250 mg daily Assessment & Plan (11/12/2021 9:28 AM CDT): Stable, improving; patient reports no use of any alcohol since last visit Continue Antabuse 250 mg daily Assessment & Plan (10/18/2021 1:47 PM CDT): Not well controlled; patient reports she has generally remained sober, but had episode of binge drinking over the weekend -will continue to monitor; -encourage complete abstinence from alcohol -referral to warm hand off program to discuss treatment options. Assessment & Plan (09/24/2021 2:05 PM CDT): Stable, not well controlled; patient has generally been alcohol free; though has had alcohol twice in last month Continue Disulfiram 250 mg daily Assessment & Plan (08/20/2021 4:12 PM CDT): Stable, well controlled; patient reports single episode of having 2 drinks, no alcohol use since then Encouraged patient to continue to engage with counseling services with peer cost recovery technician as well as clinical oncology social work continue Antabuse 250 mg daily Assessment & Plan (05/28/2021 4:13 PM LAY HEALTH ADVOCATE): Stable, well controlled; patient 90 days without alcohol use Patient is having difficulty with some emotions, having some coping skills Encouraged patient to engage with counseling; encouraged patient to engage with [facility] for community Support continue Disulfiram 250 mg Assessment & Plan (03/25/2021 12:58 PM LAY HEALTH ADVOCATE): Patient reports heavy alcohol use, for past 3 years after loss of to overdose Patient was most recently in detox and gain weight over summer; continue to use alcohol till approximately 1 month ago Patient has not had any alcohol in the last 26 days Has been started on Antabuse and gabapentin Patient is not regularly engaged with mutual support groups Continue anti views to 150 mg daily, gabapentin 600 mg t.i.d. Patient referred to [facility] for further counseling and discussion of treatment options as needed, patient may also benefit from clinical counseling for unresolved grief and coping strategies for generalized anxiety disorder KALEIGH (generalized anxiety disorder) 03/25/2021 Assessment & Plan (03/23/2025 9:24 PM LAY HEALTH ADVOCATE): Not well controlled; patient reports continued difficulty with falling asleep at night Previously on Valium Will start Valium 10 mg nightly; continue gabapentin 800 mg q.i.d. Assessment & Plan (03/27/2024 9:37 AM LAY HEALTH ADVOCATE): Stable, well controlled, patient reports good relief with Zyprexa, but concerns regarding weight gain Patient at this time does not want to switch medications Continue Zyprexa 2.5 mg nightly Assessment & Plan (09/13/2023 2:12 PM CDT): Stable, generally well controlled, continues to have some anxiety Engaged with regular counseling Patient is having difficulty with thinking forward, mostly stuck in past, as well as occasional night listed thoughts Encouraged continue work with counseling, encouraged being patient was self and taking more time for long-term results Continue gabapentin 800 mg t.i.d., hydroxyzine 25 mg p.r.n., venlafaxine 150 mg daily Assessment & Plan (04/28/2023 11:29 AM LAY HEALTH ADVOCATE): Not well controlled; today patient reports she is been having a bad day, has episodes of excessive thinking, wearing; nihilistic ideations Continue hydroxyzine 25 mg b.i.d., venlafaxine 150 mg daily, topiramate 50 mg b.i.d. Patient reports excessive weight gain on Zyprexa; will begin to taper down Zyprexa as patient tolerates Continue metformin 1000 mg daily to help with weight gain associated with Zyprexa Assessment & Plan (02/24/2023 12:38 PM CDT): Not well controlled; continues to have intrusive negative thoughts; may have some level of obsessive compulsive disorder; encouraged continued work with cognitive behavioral therapy Continue hydroxyzine 25 mg p.r.n.; Zyprexa 5 mg nightly; venlafaxine 150 mg daily Assessment & Plan (12/14/2022 2:12 PM CDT): Stable, improving; patient reports symptoms are generally better for her; no longer feeling overwhelmed or as anxious Continue Effexor 150 mg daily, Zyprexa 2.5 mg nightly; Strattera 80 mg daily Continue metformin 1000 mg daily for Zyprexa induced weight gain Assessment & Plan (08/11/2022 2:22 PM CDT): Not well controlled, worsening anxiety; patient reports breakthrough anxiety, can not sit still for long times, patient reports symptoms present for extended time Patient reports difficulties in grade school and high school; poor concentration focus, getting in trouble for talking and easily distracted concern for possible missed diagnosis continue Zyprexa 5 mg daily, sertraline 50 mg daily, venlafaxine 150 mg daily Start Strattera 40 mg daily for 2 weeks then increase to 80 mg daily Patient reports relief of symptoms with 4th dose of gabapentin While Strattera takes approximately 1 month to reach full effect; will increase gabapentin to q.i.d. dosing Patient to follow-up with psychiatry Assessment & Plan (02/08/2022 6:08 PM CDT): Stable, generally well controlled, has occasional episodes of breakthrough anxiety Assessment & Plan (11/12/2021 9:27 AM CDT): Stable, improving; patient reports limited anxiety improved sleep quality Patient is engage with outpatient counseling Continue olanzapine 2.5 mg nightly Assessment & Plan (09/24/2021 2:04 PM CDT): Not well controlled; patient reports worsening anxiety and emotional lability while tapering from Gabapentin Patient has quit job, done spontaneous activities such as cut hair Continue Venlafaxine 225 mg daily Start Zyprexa 2.5 mg nightly; will adjust dose as needed for symptoms relief Assessment & Plan (08/20/2021 4:11 PM CDT): Not well controlled, patient reports significant amounts anxiety, unclear if related to decreasing dose of gabapentin verses poorly controlled underlying general anxiety disorder Given patient's past history of substance misuse; avoid use of benzodiazepines Will start BuSpar 5 mg t.i.d., at follow-up appointment will adjust medication Assessment & Plan (05/28/2021 4:13 PM LAY HEALTH ADVOCATE): Stable, well controlled; patient reports good response to Effexor 150 mg Assessment & Plan (03/25/2021 1:00 PM LAY HEALTH ADVOCATE): Stable, somewhat controlled; patient is able to work and continue home life Patient takes hydroxyzine 25 mg p.r.n. for anxiety, currently taking about 1 per day after work Encouraged patient to engage with counseling in order to develop new healthy coping skills continue venlafaxine 150 mg for depression and anxiety Other insomnia 03/25/2021 Assessment & Plan (03/25/2021 12:59 PM LAY HEALTH ADVOCATE): Patient has difficulty with sleep initiation; unclear if related to recent alcohol use, anxiety or primary insomnia Will start doxepin 10 mg nightly Opioid dependence 04/19/2016 Assessment & Plan (03/23/2025 9:23 PM LAY HEALTH ADVOCATE): Stable, well controlled; patient remains opioid free; encouraged continued cessation; support from community with family Assessment & Plan (06/30/2023 4:05 PM LAY HEALTH ADVOCATE): Not well controlled, patient reports recent relapse, lasted only 3 days before she returned to sobriety; encouraged patient to continue to engage with mutual support groups, individual counseling peer cost recovery technician Assessment & Plan (12/14/2022 2:12 PM CDT): Well controlled, no use of any opioids Assessment & Plan (03/25/2021 12:56 PM LAY HEALTH ADVOCATE): Stable, currently well controlled; patient reports no use of opioids in over 3 years; with previous and Vivitrol which was discontinued over summer Will continue to work with and counseled patient for abstinence from opioid use Closed fracture of talus 10/23/2015 Interstitial cystitis (chronic) without hematuri a 12/17/2014 Assessment & Plan (03/25/2021 12:59 PM LAY HEALTH ADVOCATE): Continue to monitor and will work with patient for strategies to reduce chronic pain Encounters Date Type Department Care Team Description 03/07/2025 2:30 PM LAY HEALTH ADVOCATE Office Visit [facility] Primary Care at [address] [place] [id number] Peyman Gonzalez MD KALEIGH (generalized anxiety disorder) (Primary Dx); Opioid dependence in remission (HCC); Moderate episode of recurrent major depressive disorder (HCC); Alcohol use disorder, moderate, in early remission (HCC) from Last 3 Months Immunizations Immunization Administration Dates Next Due Influenza, Quadrivalent, Spl it, Preservative Free, Intramuscular 01/31/2022,01/31/2020 Influenza, Unspecified 03/07/2025(Deferr ed: Patient Refused),09/06/2023(Deferred: Patient Refused),02/24/2023(Deferred: Patient Refused),01/22/2023(Deferred: Patient Refused),02/10/2022(Deferred: Patient Refused),02/23/2021 [place] ([facility]) SARS-CoV-2 Vaccination 07/31/2020 Td, adsorbed 04/24/2010 Tdap 10/26/2014 Surgical History Surgery Date Site/Laterality Comments TOTAL ABDOMINAL HYSTERECTOMY Hysterectomy, total FOOT SURGERY PATELLA SURGERY 04/24/2018 - 04/23/2019 Medical History Medical History Date Comments Hx Other Medical Bladder; Commen ts: CAC 09/28/2015 - Cocaine abuse Alcohol abuse Family History Medical History Relation Name Comments No Known Problems Brother 1 No Known Problems Brother 2 No Known Problems Father No Known Problems Mother Arthritis Other 1 Family history of Arthritis; Heart disease Other 2 Family history of heart problems; Kidney disease Other 3 Family histor y of kidney problems; Diabetes type II Other 4 Family hist ory of Diabetes mellitus type 2; Relation Name Status Comments Brother 1 Alive Brother 2 Alive Father Alive Mother Alive Other 1 Other 2 Other 3 Other 4 Social History Tobacco Use Types Packs/Day Years Used Date Smoking Tobacco: Every Day Cigarettes Smokeless Tobacco: Never Tobacco Cessation:Ready to Q uit: Not Asked; Counseling Given: Not Answered Humiliation, Afraid, Rape, and Kick questionnair e Answer Date Recorded Within the last year, have y ou been afraid of your partner or ex-partner? No 05/04/2023 Within the last year, have y ou been humiliated or emotionally abused in other ways by your partner or ex-partner? No Within the last year, have y ou been kicked, hit, slapped, or otherwise physically hurt by your partner or ex-partner? No 05/04/2023 Within the last year, have y ou been raped or forced to have any kind of sexual activity by your partner or ex-partner? No 05/04/2023 AUDIT-C Answer Date Recorded Frequency of Alcohol Consumption Not on file 05/04/2023 Q2: How many drinks containi ng alcohol do you have on a typical day when you are drinking? Patient does not drink Q3: How often do you have si x or more drinks on one occasion? Never 05/04/2023 PHQ-2 Answer Date Recorded PHQ-2 Total Score (If total score is 3 or more points, staff should administer the PHQ-9) 6 06/20/2024 PHQ-9 Answer Date Recorded PHQ-9 Total Score 19 06/20/2024 Personal Safety Answer Date Recorded Have you ever been in or are you currently in a harmful physical or emotional relationship or is someone making you feel afraid or unsafe? Denies 11/04/2023 Comments No Sex and Gender Information Value Date Recorded Sex Assigned at Not on file Legal Sex Female 10:10 AM [employer] Gender Identity Not on file Sexual Orientation Not on file Obstetrics History Para Term AB IAB SAB Ectopic Multiple Livin g Live Births 2 2 2 2 2 Date Outcome GA Total Labor Labor//3rd Weight Sex Type Anes PTL Vidhya A1 A5 Name Clin 08/11 08 Term 2.977 kg (6 lb 9 oz) M Vaginal None Livin g Complications:None 10/11 11 Term 3.175 kg (7 lb) M Vaginal Epidur al Livin g Complications:None Last Filed Vital Signs Vital Sign Reading Time Taken Comments Blood Pressure 120/80 03/07/2025 2:24 PM [employer] Pulse 109 03/07/2025 2:24 PM [employer] Temperature 36.8 C (98.2 F) 03/07/2025 2:24 PM [employer] Respiratory Rate 18 06/20/2024 9:17 AM [employer] Oxygen Saturation 98% 03/07/2025 2:24 PM [employer] Inhaled Oxygen Concentration - - Weight 70.6 kg (155 lb 9.6 oz) 03/07/2025 2:24 P M [employer] Height 165.1 cm (5' 5) 03/07/2025 2:24 PM [employer] Body Mass Index 25.89 03/07/2025 2:24 PM [employer] Plan of Treatment Health Maintenance Due Date Last Done Comments Pneumococcal vaccine <65 (1 of 2 - PCV) 2004 Regular Well Visit/Exam 18-64 05/04/2024 05/04/2023 DTaP/Tdap/Td Vaccine (2 - Td or Tdap) 10/26/2024 10/26/2014, 04/24/2010 Covid-19 Vaccine ( - season) 2024 05/11/2021, 07/31/2020 Depression Screening 06/20/2025 06/20/2024, 06/20/2024, 05/04/2023, Additional history exists Influenza Vaccine (#1) 2025 2, 02/23/2021, 01/31/2020 Postponed from 12/23/2024 (Patient declined, but will receive in the future) HPV Vaccines (1 - 3-dose SCDM series) 03/07/2026 Postponed from 2012 (Patient declined, but will receive in the future) Varicella Vaccines (1 of 2 - 13+ 2-dose series) 03/11/2026 Postponed from 1998 (Patient declined, but will receive in the future) Hepatitis B Screening Completed 09/26/2024 Hepatitis C Screening Completed 09/26/2024 Goals Goal Patient Goal Type Associated Problems Recent Progress Patient-Stated? Author Improve your coping skills Lifestyle No Nany Bustamante Note: Pt will seek to improve coping skills by attending a CR meeting. Procedures Procedure Name Priority Date/Time Associated Diagnosis Comments HEPATITIS C ANTIBODY Routine 09/26/2024 1:17 PM CDT Encounter for hepatitis C screening test for low risk patient from Last 3 Months or Most Recently Relevant to Health Maintenance Results * Hepatitis C antibody Blood (09/26/2024 1:17 PM CDT) Hep C Ab Nonreactive Nonreactive Comment: Interpretive Data Nonreactive: Antibodies to HCV not detected. Does NOT exclude the possibility of recent exposure to HCV. Equivocal: Equivocal for HCV antibodies. Supplemental molecular testing will be automatically performed to determine infection status in accordance with current CDC screening recommendations. Reactive: Positive for HCV antibodies. This may represent current or past HCV infection. Supplemental molecular testing will be automatically performed to determine current infection status in accordance with current CDC screening recommendations. Interpretive data was last revised on 2019. Testing performed by: [facility], [address] [place] [address], [place]., [address] Blood 09/26/2024 1:17 PM CDT 09/26/2024 6:59 PM CDT Peyman Gonzalez MD LAB MICROBIOLOGY - GENERA L ORDERABLES Final Result [facility] [address] [facility] [place] [address] from Last 3 Months or Most Recently Relevant to Health Maintenance Insurance [facility] [place] [address] [employer] Care Teams Equipment Services Associate Relationship Specialty Start Date End Date Peyman Gonzalez MD [address] [place] [address] PCP - General Family Medicine 03/25/21 Nany Bustamante Resource Economist Addiction Medicine 03/25/21
--- OUTSIDE RECORDS SUMMARY | 2025-04-12 10:38 | XMS_ITS | Clinical Summary ---
Author Organization [facility] Address [address] [place] [address] Phone Care Team Providers Care International Travel Consultant Name Role Phone Peyman Gonzalez MD Primary Care Provider [phone] Allergies Active Allergy Reactions Criticality Noted Date Comments Sulfamethoxazole-Trimethoprim Unknown Medications gabapentin (NEURONTIN) 600 MG Tablet Take 600 mg by mouth 3 times daily. Active venlafaxine (Effexor XR) 150 MG CAPSULE SR 24 HR Take 150 mg by mouth daily. Active disulfiram (ANTABUSE) 250 MG Tablet Take 250 mg by mouth daily. Active venlafaxine (Effexor XR) 75 MG CAPSULE SR 24 HR Take 75 mg by mouth nightly. Active hydrOXYzine (VISTARIL) 25 MG Capsule Take 1 Capsule by mouth 3 times daily as needed for Anxiety. 30 Capsule 09/05/2021 Active Active Problems Problem Noted Date Diagnosed Date Opioid dependence 04/19/2016 Chronic interstitial cystitis Chronic pelvic pain in female Chronic anxiety TMJ (dislocation of temporomandibular joint) Immunizations Immunization Administration Dates Next Due TD VACCINE 04/24/2010 Social History Tobacco Use Types Packs/Day Years Used Date Smoking Tobacco: Former Cigarettes Alcohol Use Standard Drinks/Week Comments Not Currently 0 (1 standard drink = 0.6 oz pur e alcohol) daily pint vodka Comments No Sex and Gender Information Value Date Recorded Sex Assigned at Not on file Legal Sex Female 12:01 AM CDT Gender Identity Not on file Sexual Orientation Not on file Last Filed Vital Signs Vital Sign Reading Time Taken Comments Blood Pressure 117/79 09/05/2021 6:55 PM CDT Pulse 100 09/05/2021 6:55 PM CDT Temperature 36.6 C (97.8 F) 09/05/2021 4:38 PM CDT Respiratory Rate 18 09/05/2021 6:55 PM CDT Oxygen Saturation 99% 09/05/2021 6:55 PM CDT Inhaled Oxygen Concentration - - Weight 72.6 kg (160 lb) 09/05/2021 4:38 PM CDT Height 166.4 cm (5' 5.5) 09/05/2021 4:38 PM CDT Body Mass Index 26.22 09/05/2021 4:38 PM CDT Plan of Treatment Health Maintenance Due Date Last Done Comments Hepatitis C Virus (HCV) Screening 1985 Varicella Immunization (1 of 2 - 13+ 2-dose series) 1998 Hepatitis B Immunization (1 of 3 - 19+ 3-dose series) 2004 Influenza Immunization (#1) 2024 11/0 05/2020, 01/31/2020 SARS-COV-2 Immunization ( - 2024- season) 2024 05/11/2021, 07/31/2020 Respiratory Syncytial Virus (RSV) Immunization (Adult) (1 - 1-dose 75+ series) 2060 DTaP/Tdap/Td Immunization Discontinued 2014, 04/24/2010 TdaP Immunization Completed 10/26/2014 Human Papillomavirus (HPV) Immunization (No Doses Required) Completed Meningococcal Immunization (ACWY) Aged Out No longer eligible based on patient's age to complete this topic Pneumococcal Immunization Combined Aged Out No longer eligible based on patient's age to complete this topic Rotavirus Immunization Aged Out No lo nger eligible based on patient's age to complete this topic Insurance MEDICAID [employer] Advance Directives * Full Code (Latest Code Status on File) Date Activated Date Inactivated Comments 08/01/2016 11:23 PM 08/03/2016 2:38 PM CPR-Full Tr eatment: FULL ARREST: Attempt Resuscitation/CPR wit intubation and mechanical ventilation. PRE-ARREST: Use entire range of life support measures to stabilize the patient. Care Teams International Travel Consultant Relationship Specialty Start Date End Date Peyman Gonzalez MD [address] [place] [address] PCP - General Family Medicine 09/05/21
--- NOTE | 2025-04-12 11:04 | ED_ITS ---
HPI - Nausea/Vomiting/Diarrhea General Chief complaint: Upper Respiratory Infection Stated complaint: Diarrhea Time Seen by Provider: 04/12/25 11:00 Source: patient, RN notes reviewed and old records reviewed Mode of arrival: ambulatory Limitations: no limitations History of Present Illness HPI Narrative: 39 year old female who [facility] with complaints of episodes of incontinent loose stools since Monday 4 days with continued complaints of diarrhea today X5. Patient reports that she has had nausea without vomiting and also some some sinus head congestion. Patient reports that she has been taking some Imodium and also taken some Pepto Bismol for the diarrhea. Patient reports that she has been able to eat and drink. MD elicited complaint: nausea, diarrhea and other (sinus congestion) Onset (ago): day(s) (4) Description of diarrhea: watery Associated nausea: Yes Associated abdominal pain: No Treatment prior to arrival: immodium and other (Pepto Bismol) Related Data Home Medications ?Medication ?Instructions ?Recorded ?Confirmed ?Last Taken ?Type venlafaxine 150 mg 150 mg PO DAILY 11/21/1905/17 Unknown History capsule,extended release 24 hr disulfiram 250 mg tablet 250 mg PO DAILY 09/05/2105/17 Unknown History gabapentin 800 mg tablet 80 mg PO TID 12/24/23 Unknown History Valium 04/12/25 Unknown History diazepam 10 mg tablet mg 04/12/25 Unknown History Allergies Allergy/AdvReac Type Severity Reaction Status Date / Time Sulfa (Sulfonamide Allergy Mild hives Verified 04/12/25 10:56 Antibiotics) sulfamethoxazole Allergy Mild hives Verified 04/12/25 10:56 trimethoprim Allergy Mild hives Verified 04/12/25 10:56 Review of Systems Review of Systems: CONSTITUTIONAL: Denies fever, chills, or sweats. EYES: Denies visual changes, redness, or discharge. ENT: reports rhinorrhea, congestion,no sore throat, or otalgia. CARDIOVASCULAR: Denies chest pain, palpitations, or edema. RESPIRATORY: Denies cough or dyspnea. GASTROINTESTINAL: Denies abdominal pain,+ nausea, no vomiting, positive for diarrhea. GENITOURINARY: Denies dysuria or hematuria. SKIN: Denies rash or itching. MUSCULOSKELETAL: Denies back pain, joint pain, or myalgia. NEUROLOGIC: Denies headache, numbness, or weakness. PSYCHIATRIC: Positive for history of anxiety or depression. All systems reviewed & are unremarkable except as noted in HPI and below PMFSH Past Medical History Medical History History of substance abuse now on naltrexone Anxiety Depression Smoker Surgical History Surgical History History of hysterectomy Family History Family History Father Alive and well Mother Alive and well Social History Social History Smoking packs per day: 0.5 Smoking cigarettes per day: 10.0 Years smoked: 15 Smoking pack-years: 7.50 Smoking status: Current every day smoker Tobacco type: cigarettes Second hand tobacco smoke exposure: No Alcohol intake: current Drinks per week: 2 Substance use: current Substance use type: marijuana Other substance usage details: FORMER OPIATE ABUSE- 2 YEARS AGO Last use: 11/21/2019 Living arrangements: with family Occupation/Education: unemployed Gender identity (if verbalized by the patient): Female Sexual Orientation (if Verbalized by the Patient): Straight or Heterosexual Spiritual care concerns: No Comments At time of signature, agree with nursing past medical, surgical, social and family history. There is no relevant family history pertinent to the presenting complaint Exam Narrative: GENERAL: Well-appearing, well-nourished, and in no acute distress. HEAD: Normocephalic, atraumatic. EYES: PERRLA and EOMI. ENT: Nares clear, clear rhinorrhea no epistaxis. Mucous membranes moist.TM's normal with good light reflex, throat pink with no swelling or exudates NECK: Supple. no lymphadenopathy CHEST: Clear to auscultation. No respiratory distress.no cough noted SAO2 100% on room air HEART: Regular rate and rhythm. No murmur heard. Normal peripheral pulses. ABDOMEN: Soft, nontender to palpation with no McBurney point tenderness, nondistended, normal active bowel sounds.episodes of diarrhea and complaints of nausea without emesis EXTREMITIES: Normal range of motion. No edema. SKIN: Warm, dry, no rash. NEURO: No focal deficits. Alert and oriented x3. Course Course Level of Care: Express Care Visit Vital Signs Vital signs: Vital Signs Temperature 36.4 C 12/20/25 10:38 Pulse Rate 80 04/12/25 10:38 Respiratory Rate 16 04/12/25 10:38 Blood Pressure 121/77 04/12/25 10:38 Pulse Oximetry 100 04/12/25 10:38 Oxygen Delivery Room Air 04/12/25 10:38 Temperature 36.4 C 04/12/25 10:38 Pulse Rate 80 04/12/25 10:38 Respiratory Rate 16 04/12/25 10:38 Blood Pressure 121/77 04/12/25 10:38 Pulse Oximetry 100 04/12/25 10:38 Oxygen Delivery Room Air 04/12/25 10:38 reviewed [facility] Narrative Medical decision making narrative: 39 year old female with 4 days of diarrhea which has been watery with nausea without emesis. Patient reports also some nasal congestion and drainage. Patient reports no known fevers chills or sweats or body aches. Patient has treated with pepto Bismol and Imodium with diarrhea continuing, has been able to eat and drink without emesis. Patent tested positive for COVID. Patient is appropriate for outpatient care and follow up. Anticipatory guidance and reasons to seek care in ED reviewed with understanding voiced. Differential Diagnosis Differential Diagnosis: Differential diagnostic considerations for nausea/vomiting/diarrhea include gastroenteritis, appendicitis, IBD, intestinal obstruction, clostridium difficile, food poisoning, peritonitis, IBS, dehydration, ischemic bowel, ACS, pancreatitis, drug induced nausea/vomiting. Lab Data [facility] Lab Attestation statement: I personally reviewed the patient's lab results. Lab results narrative: Influenza A&B negative, COVID antigen positive Labs: Lab Results 04/12/25 04/12/25 Range/Units 11:31 11:32 POC Influenza A Ag Negative Negative (Negative) POC Influenza B Ag Negative Negative (Negative) POC SARS CoV-2 Ag Positive Positive (Negative) reviewed Critical Care Time Critical Care Time Critical Care Time: No Discharge Plan Discharge Clinical Impression: COVID-19 Diarrhea Qualifiers: Diarrhea type: unspecified type Qualified Code(s): R19.7 - Diarrhea, unspecified Patient Disposition: Home Condition: Stable Instructions: Acute Diarrhea (ED), How to Recover from COVID-19 at Home (ED) Additional Instructions: Clear liquids for the next 8-10 hours, then advance to a bland diet as amanda erated A bland diet can consist of--BRAT diet which is bananas, rice, applesauce, and toast Avoid fried, greasy, fatty, fried foods Avoid caffeine, nicotine, and alcohol Return to your regular diet in the next 3-4 days use Tylenol for any pain or any fever Sometimes ibuprofen/Aleve can cause increased stomach upset [id number] Imodium if develop diarrhea Follow-up with her PCP if continued problems or uncontrolled pain If your symptoms persist, change or worsen significantly before you can contact your personal physician then please, without delay, go to the emergency department for further evaluation. Follow-up with PCP in 7-10 days or sooner if needed COVID-19 DISCHARGE The following recommendations have been made by the CDC and local Health Departments, regarding COVID-19: Those individuals with mild cases of COVID-19 can generally be discontinued from isolation, 5 days AFTER the onset of symptoms AND the resolution of fever for 24hrs (without the use of fever-reducing medications) Those individuals who were asymptomatic, and tested positive, are discontinued from isolation 10 days AFTER their first positive COVID-19 test Those individuals with SEVERE to CRITICAL illness or immunocompromised diseases may require up to 20 days of home isolation or hospitalization Majority of mild to moderate cases can be treated at home, without hospitalizat ion or prescription medications You do not need a negative test result to return to work/school, assuming the above recommendations have been met and you are not symptomatic. At this time, return to work/school notes will not be provided. Guidelines from the local Health Department, CDC, and workplace are expected to be followed. All individuals in the household need to remained quarantined for up to 14 days if asymptomatic OR 10 days after the start of symptoms. Everyone in the home DOES NOT require testing, they are presumed positive and should quarantine as directed. Treating symptoms for mild to moderate cases may include: Tylenol, Flonase/nasal spray, OTC cold/flu medications recommended from your provider or any necessary prescription medications provided at your visit or from your PCP IF YOU TESTED NEGATIVE If you are symptomatic with reason to believe you have COVID-19, there is a high possibility your rapid test may not have detected the virus. Rapid testing is dependent on timing and viral load and may have a false- negative reading You should follow appropriate guidelines regarding quarantine, hand washing, mask wearing, and social distancing You may be sent for PCR testing as an outpatient to the [facility] testing site Common Adult Symptoms: Fever/chills Cough Shortness of breath Fatigue, muscle aches Headache Loss of taste/smell Sore throat, congestion, runny nose GI symptoms (nausea, vomiting, diarrhea) Common Pediatric Symptoms Cough Fever GI symptoms (diarrhea, upset stomach, nausea, vomiting) Symptoms may differ in severity however, most cases do not require hospitalization. WHEN TO SEEK ER EVALUATION/TREATMENT Severe/persistent shortness of breath or difficulty breathing Elevated, persistent fevers without resolution with fever-reducing medications Chest pain Extreme fatigue/lethargy Complications of pre-existing disease Patient Language: Jamaican Prescriptions: New diphenoxylate-atropine [Lomotil] 2.5-0.025 mg tablet 1 tablet PO TID PRN (Reason: diarrhea) Qty: 14 0RF No Action disulfiram 250 mg tablet 250 mg PO DAILY gabapentin 800 mg tablet 80 mg PO TID diazepam 10 mg tablet Valium venlafaxine 150 mg capsule,extended release 24hr 150 mg PO DAILY Follow-up/Referrals: Carlos,MD Peyman [Primary Care Provider, Unknown] Stand Alone Forms: Work/School Release IP Time of Disposition: 11:28 Quality [place] Coma Scale Eyes: Open Verbal: Oriented and Alert Motor: Follows Commands [place] Coma Total Score: 15
[2025-04-12 11:34] LABS: EDCOVIDSCREEN Positive (Negative); EDINFLUASCREEN Negative (Negative); EDINFLUBSCREEN Negative (Negative)
[2025-04-12 11:34] LABS: EDCOVIDSCREEN Positive (Negative)
[2025-04-12 11:35] LABS: EDINFLUASCREEN Negative (Negative); EDINFLUBSCREEN Negative (Negative)
== END 2025-04-12 11:36 | disposition home or self-care (01) ==
PROVIDERS: Emergency Provider Registered Nurse; PCP Hospitalist
DX: U07.1 COVID-19 (principal); R19.7 Diarrhea, unspecified; F17.210 Nicotine dependence, cigarettes, uncomplicated; F41.9 Anxiety disorder, unspecified; F32.A Depression, unspecified
CPT/HCPCS: 87426; 87804; 99213; G0463